=== PATIENT | male | born 1970 | race Caucasian/White ===

== ENCOUNTER 2018-01-15 14:05 | Emergency (ER) | payer BC, MEDICAID, OTHER ==
[~2018-01-15] VITALS: Ht 157.5 cm; Wt 79.4 kg
[~2018-01-15 14:05] MED LIST: ASPI-1169 PO; ATOR40TA PO; CARV6.25 PO; ENOX80DI SQ; Morphine Sulfate IV; NITR0.4T48 SL
--- NOTE | 2018-01-15 14:05 | NUR ---
C/O CHEST PAIN, DIZZINESS, HEADACHE, WEAKNESS X 1 WEEK, WORSE SINCE LAST NIGHT . PLACED ON MONITOR. AWAITING MD ORDER
--- NOTE | 2018-01-15 14:37 | NUR ---
RAC #20 IV ACCESS. BLOOD SAMPLE COLLECTED SENT TO LAB
[2018-01-15] MEDS ORDERED: IBUP-1490 PO (14:39)
[2018-01-15] MEDS ORDERED: BENA10TA9 PO (14:39)
[2018-01-15] MEDS ORDERED: CLOP75TA15 PO (14:39)
[2018-01-15] MEDS ORDERED: ASPI81TA44 PO (14:39)
[2018-01-15] MEDS ORDERED: PANT40TA4 PO (14:39)
[2018-01-15] MEDS ORDERED: ATOR10TA PO (14:39)
[2018-01-15 14:40] LABS: BASOPHILS % (AUTO) 0.5 % (0.0-2.0); EOSINOPHILS % (AUTO) 2.1 % (0.0-6.0); HEMATOCRIT 43 % (39-51); HEMOGLOBIN 14.2 g/dL (13.5-17.5); LYMPHOCYTES # (AUTO) 1.9 /CMM (0.8-4.8); LYMPHOCYTES % (AUTO) 22.4 % (20.0-44.0); MEAN CORPUSCULAR HGB CONC 34 g/dl (31.0-36.0); MEAN CORPUSCULAR VOLUME 89 fL (80-96); MONOCYTES # (AUTO) 0.6 /CMM (0.1-1.30); MONOCYTES % (AUTO) 6.8 % (2.0-12.0); NEUTROPHILS # (AUTO) 5.7 /CMM (1.8-8.9); NEUTROPHILS % (AUTO) 68.2 % (43.0-81.0); PLATELET COUNT (AUTO) 224 /CMM (150-450); RDW COEFFICIENT OF VARIATION 13.4 (11.5-15.0); RED BLOOD CELL COUNT(AUTO) 4.78 MIL/uL (4.5-6.0); WHITE BLOOD COUNT (AUTO) 8.4 K/uL (4.3-11.0)
[2018-01-15 14:50] LABS: CALCIUM, SERUM 8.8 mg/dL (8.5-10.1); CREATININE 0.9 mg/dL (0.6-1.3); POTASSIUM 3.7 mmol/L (3.5-5.1)
[2018-01-15 14:54] LABS: INR 0.88 (0.85-1.15)
[2018-01-15 14:56] LABS: ALBUMIN 3.8 g/dL (3.4-5.0); BILIRUBIN,TOTAL 0.2 mg/dL (0.2-1.0); TOTAL PROTEIN, SERUM 7.4 g/dL (6.4-8.2)
--- NOTE | 2018-01-15 16:10 | NUR ---
KISHA FROM [facility] [phone] CALLED ACCEPTING MD DR DE LA FUENTE [phone]
--- NOTE | 2018-01-15 17:51 | NUR ---
[phone] YASMIN FREDERICK CM TO GET ROOM AT [facility]
[2018-01-15 17:55] VITALS: BP 124/64
--- NOTE | 2018-01-15 19:16 | NUR ---
CALLED [facility], PATIENT WILL BE GOING TO ROOM 5558 NUMBER TO GIVE REPORT .
--- NOTE | 2018-01-15 19:19 | NUR ---
GAVE REPORT TO SHEILA FOR MADINA
--- NOTE | 2018-01-15 19:23 | NUR ---
[facility] MANJIT UNABLE TO PROVIDE NURSE AT THIS TIME CHANGE OF SHIFT. PROVIDED [facility] NUMBER
--- NOTE | 2018-01-15 19:24 | NUR ---
CALLED [facility] FOR TRANSPORT ETA OF [phone] WAS GIVEN. TRIP#[id number]
[2018-01-15] MEDS ORDERED: ACETAMINOPHEN ES 500 MG TABLET ONE (19:32)
--- NOTE | 2018-01-15 19:33 | NUR ---
TYLENOL 1000 MG X1 FOR HEADACHE VERBAL ORDER DR ANTUNEZ
[2018-01-15] MEDS ORDERED: ACETAMINOPHEN 325 MG TABLET PO ONE (20:00)
--- NOTE | 2018-01-15 20:51 | NUR ---
REPORT GIVEN TO EMT FOR TRANSPORT REPORT GIVEN TO [facility]
== END 2018-01-15 20:51 | disposition short-term general hospital (02) ==
LOC: ER 14:07
DX: R07.89 Other chest pain (principal); I25.10 Atherosclerotic heart disease of native coronary artery without angina pectoris; E78.5 Hyperlipidemia, unspecified; F17.200 Nicotine dependence, unspecified, uncomplicated; I10 Essential (primary) hypertension; Z79.82 Long term (current) use of aspirin; Z95.5 Presence of coronary angioplasty implant and graft
CPT/HCPCS: 36415; 71045-TC; 80053-TC; 84484-TC; 85025-TC; 85730-TC; A4606; Z7610

== ENCOUNTER 2018-09-25 19:17 | Emergency (ER) | END 2018-09-25 20:16 | disposition home or self-care (01) | DX: J20.9 Acute bronchitis, unspecified (principal); I10 Essential (primary) hypertension; E78.5 Hyperlipidemia, unspecified; E11.9 Type 2 diabetes mellitus without complications; F17.200 Nicotine dependence, unspecified, uncomplicated; Z95.5 Presence of coronary angioplasty implant and graft; Z79.82 Long term (current) use of aspirin ==

== ENCOUNTER 2019-11-24 20:24 | Emergency (ER) | payer BC ==
[~2019-11-24] VITALS: Ht 170.2 cm; Wt 72.1 kg
[~2019-11-24 20:24] MED LIST changes: -ASPI-1169 PO; +ASPI81TA44 PO; +ATOR10TA PO; -ATOR40TA PO; +BENA10TA74 PO; -CARV6.25 PO; +CLOP75TA15 PO; -ENOX80DI SQ; +IBUP-1490 PO; -Morphine Sulfate IV; -NITR0.4T48 SL; +PANT40TA4 PO
[2019-11-24] MEDS ORDERED: IV NS 0.9% 1,000 ML BAG IV ONE ×3 (21:00→22:30)
[2019-11-24 21:09] LABS: APPEARANCE,URINE Clear (CLEAR); BILIRUBIN,URINE Negative (NEGATIVE); BLOOD, URINE Trace-intact Ery/uL (NEGATIVE); COLOR,URINE Yellow (YELLOW); KETONES,URINE Negative (NEGATIVE); LEUKOCYTE ESTERASE ,URINE Negative (NEGATIVE); NITRITE, URINE Negative (NEGATIVE); PH,URINE 5.5 (5.0-8.0); PROTEIN,URINE Negative (NEGATIVE); UGLUCOSE >=1000 mg/dL (NEGATIVE); UROBILINOGEN,URINE 0.2 EU/dL (0.2)
--- NOTE | 2019-11-24 21:13 | NUR ---
MEIR. ELEVATED BS "HI" ON METER AT HOME. REGULAR INSULIN 1HR CABINET ABRASIVE SANDBLASTER 10UNITS, BG 423 TO ER BED 4, ORDERES RECEIVED AND CARRIED OUT
[2019-11-24 21:23] LABS: BACTERIA,URINE None seen /HPF (None Seen); RBC,URINE 0-2 /HPF (0-2); SQUAMOUS EPITHELIAL CELL,UR Few /HPF (None Seen); WBC,URINE 0-2 /HPF (0-3)
[2019-11-24 21:25] LABS: BASOPHILS # (AUTO) 0.1 /CMM (0.0-0.2); BASOPHILS % (AUTO) 0.8 % (0.0-2.0); EOSINOPHILS % (AUTO) 1.4 % (0.0-6.0); HEMATOCRIT 47 % (39-51); HEMOGLOBIN 15.9 g/dL (13.5-17.5); LYMPHOCYTES # (AUTO) 1.7 /CMM (0.8-4.8); LYMPHOCYTES % (AUTO) 25.3 % (20.0-44.0); MEAN CORPUSCULAR HGB CONC 34 g/dl (31.0-36.0); MEAN CORPUSCULAR VOLUME 92 fL (80-96); MONOCYTES # (AUTO) 0.5 /CMM (0.1-1.30); MONOCYTES % (AUTO) 6.9 % (2.0-12.0); NEUTROPHILS # (AUTO) 4.3 /CMM (1.8-8.9); NEUTROPHILS % (AUTO) 65.6 % (43.0-81.0); PLATELET COUNT (AUTO) 194 /CMM (150-450); RED BLOOD CELL COUNT(AUTO) 5.15 MIL/uL (4.5-6.0); WHITE BLOOD COUNT (AUTO) 6.5 K/uL (4.3-11.0)
[2019-11-24 21:41] LABS: ALANINE AMINOTRANSFERASE 9 U/L (12-78); ALBUMIN 3.8 g/dL (3.4-5.0); ALKALINE PHOSPHATASE 115 U/L (46-116); ASPARTATE AMINOTRANSFERASE 9 U/L (15-37); BILIRUBIN,DIRECT 0.1 mg/dL (0.0-0.2); BILIRUBIN,TOTAL 0.3 mg/dL (0.2-1.0); TOTAL PROTEIN, SERUM 7.2 g/dL (6.4-8.2)
--- NOTE | 2019-11-24 22:10 | NUR ---
BG 389
[2019-11-24] MEDS ORDERED: INSULIN REGULAR, HUMAN 100 UNIT/ML 10 ML VIAL SQ ONE (22:30)
[2019-11-24] MEDS ORDERED: INSULIN REGULAR, HUMAN 100 UNIT/ML 10 ML VIAL ONE (22:41)
[2019-11-24 23:02] LABS: POTASSIUM 4.5 mmol/L (3.5-5.1)
[2019-11-24 23:03] LABS: CALCIUM, SERUM 8.8 mg/dL (8.5-10.1); CREATININE 0.9 mg/dL (0.6-1.3)
--- NOTE | 2019-11-25 00:34 | NUR ---
Patient discharged to home in stable condition. Written and verbal after care instructions given. Patient verbalizes understanding of instruction.
[2019-11-25 00:35] VITALS: BP 108/75
== END 2019-11-25 00:35 | disposition home or self-care (01) ==
LOC: ER 20:29
DX: E11.65 Type 2 diabetes mellitus with hyperglycemia (principal); F17.210 Nicotine dependence, cigarettes, uncomplicated; E78.5 Hyperlipidemia, unspecified; I10 Essential (primary) hypertension; I25.2 Old myocardial infarction; Z95.5 Presence of coronary angioplasty implant and graft; Z79.82 Long term (current) use of aspirin; Z79.899 Other long term (current) drug therapy
CPT/HCPCS: 36415; 71045; 80048; 80076; 81001; 82962 ×4; 83880; 84484; 85025; 93005; 96360; 96361; 96372; 99285; 99406; J1815; J7030 ×2; 81000-TC

== ENCOUNTER 2021-01-27 22:25 | Inpatient (IN) | payer BC ==
[~2021-01-27] VITALS: Ht 167.6 cm; Wt 82.6 kg
[~2021-01-27 22:25] MED LIST changes: -PANT40TA4 PO; +PANT40TA49 PO
[2021-01-27] MEDS ORDERED: HALOPERIDOL LACTATE INJ 5 MG/ML VIAL ONE (22:40)
[2021-01-27] MEDS ORDERED: diphenhydrAMINE HCL 50 MG/ML VIAL ONE (22:54)
[2021-01-27] MEDS ORDERED: HALOPERIDOL LACTATE INJ 5 MG/ML VIAL IM ONE (23:00)
[2021-01-27] MEDS ORDERED: diphenhydrAMINE HCL 50 MG/ML VIAL IM ONE (23:00)
[2021-01-27 23:09] LABS: BASOPHILS % (AUTO) 0.5 % (0.0-2.0); EOSINOPHILS % (AUTO) 2.1 % (0.0-6.0); HEMATOCRIT 43 % (39-51); HEMOGLOBIN 14.4 g/dL (13.5-17.5); LYMPHOCYTES # (AUTO) 2.7 /CMM (0.8-4.8); LYMPHOCYTES % (AUTO) 34.5 % (20.0-44.0); MEAN CORPUSCULAR HGB CONC 34 g/dl (31.0-36.0); MEAN CORPUSCULAR VOLUME 93 fL (80-96); MONOCYTES # (AUTO) 0.5 /CMM (0.1-1.30); MONOCYTES % (AUTO) 6.2 % (2.0-12.0); NEUTROPHILS # (AUTO) 4.4 /CMM (1.8-8.9); NEUTROPHILS % (AUTO) 56.7 % (43.0-81.0); PLATELET COUNT (AUTO) 226 /CMM (150-450); RED BLOOD CELL COUNT(AUTO) 4.56 MIL/uL (4.5-6.0); WHITE BLOOD COUNT (AUTO) 7.8 K/uL (4.3-11.0)
--- NOTE | 2021-01-27 23:20 | NUR ---
STEPHANY FROM HOME TO ER BED 12. AWAKE, ALERT AND AGITATED. PT YELLING AND SCREAMING. BROUGHT INF FOR ALCOHOL INTOXICATION. PER EMS REPORT, PT WAS REPORTED BY THE FAMILY DRINKING TEQUILA ALL DAY. PT IS AGITATED UPON RECEIVING M/B YELLING AND SCREAMING. UNABLE TO GET INFORMATION FROM THE PATIENT. PT IS ON MONITOR NOTED TACHYCARDING IN THE 110. MD WAS AT THE BEDSIDE FOR EVAL. ORDERS RECEIVED, NOTED AND CARRIED OUT. IV LINE PRESENT STARTED BY THE EMS. PT ON MONITOR.
--- NOTE | 2021-01-27 23:27 | NUR ---
PT ENDORSED TO MARIA LUISA OROZCO FOR MADINA
[2021-01-27 23:30] LABS: CALCIUM, SERUM 8.4 mg/dL (8.5-10.1); CARBON DIOXIDE 22 mmol/L (21-32); CHLORIDE 104 mmol/L (98-107); CREATININE 0.9 mg/dL (0.6-1.3); GLUCOSE 218 mg/dL (74-106); POTASSIUM 3.7 mmol/L (3.5-5.1); SODIUM SERUM 141 mmol/L (136-145); UREA NITROGEN, BLOOD 14 mg/dL (7-18)
[2021-01-27 23:38] LABS: ALANINE AMINOTRANSFERASE 29 U/L (12-78); ALBUMIN 3.7 g/dL (3.4-5.0); ALCOHOL, BLOOD 258 mg/dL (0-0); ALKALINE PHOSPHATASE 78 U/L (46-116); ASPARTATE AMINOTRANSFERASE 15 U/L (15-37); BILIRUBIN,TOTAL 0.1 mg/dL (0.2-1.0); TOTAL PROTEIN, SERUM 7.2 g/dL (6.4-8.2)
[2021-01-27 23:39] LABS: ACETAMINOPHEN < 3 ug/ml (10-30)
--- NOTE | 2021-01-28 00:12 | NUR ---
CALL FROM LAB. RAPID COVID NEGATIVE.
[2021-01-28] MEDS ORDERED: IV NS 0.9% 1,000 ML BAG IV ONE (01:00)
--- NOTE | 2021-01-28 01:00 | NUR ---
left hand 20g initated
--- NOTE | 2021-01-28 01:00 | NUR ---
transfer info: CM is Kathy Bettencourt. Pt going to [facility]. Accepting Dr Weinstein. Auth for ambulance is [id number]
--- NOTE | 2021-01-28 02:10 | NUR ---
TRANSFER INFO IS [facility] ROOM 509 MD ANTONINA LUJAN, NUMBER FOR REPORT IS [phone] PER ROYAL WHELAN FROM [facility].
[2021-01-28] MEDS ORDERED: ASPIRIN 81 MG TAB.CHEW PO ONE (02:30)
[2021-01-28] MEDS ORDERED: LORAZEPAM 1 MG TABLET PO ONE (02:30)
--- NOTE | 2021-01-28 02:34 | NUR ---
[employer] called for transport. Trip: [id number]
[2021-01-28] MEDS ORDERED: ASPIRIN EC 81 MG TABLET.DR PO ONE (03:15)
[2021-01-28] MEDS ORDERED: LORAZEPAM 1 MG TABLET ONE (03:15)
[2021-01-28] MEDS ORDERED: ASPIRIN 81 MG TAB.CHEW ONE (03:16)
--- NOTE | 2021-01-28 03:28 | NUR ---
REPORT GIVEN TO MARIA LUISA ARCINIEGA FOR [facility]
--- NOTE | 2021-01-28 04:05 | NUR ---
CALL FROM [facility] TRANSP[facility]. [facility] ETA [phone].
[2021-01-28] MEDS ORDERED: IV NS 0.9% 1,000 ML IV PRN (06:00)
[2021-01-28] MEDS ORDERED: HYDROCODONE/APAP 5/325MG TABLET PO PRN (06:00)
[2021-01-28] MEDS ORDERED: LORAZEPAM INJ 2 MG/ML VIAL IV PRN (06:00)
[2021-01-28] MEDS ORDERED: Thiamine 100 MG in IV D5W 50 ML IV SCH (06:00)
[2021-01-28] MEDS ORDERED: MAG HYDROX/AL HYDROX/SIMETH 30 ML UDC PO PRN (06:00)
[2021-01-28] MEDS ORDERED: ACETAMINOPHEN 325 MG TABLET PO PRN (06:00)
[2021-01-28] MEDS ORDERED: Z GUARD REMEDY 2 OZ OINT TP PRN (06:00)
[2021-01-28] MEDS ORDERED: MAGNESIUM HYDROXIDE 30 ML UDC PO PRN (06:00)
[2021-01-28] MEDS ORDERED: ZOLPIDEM TARTRATE 5 MG TABLET PO PRN (06:00)
[2021-01-28] MEDS ORDERED: ONDANSETRON HCL/PF 4 MG/2 ML VIAL IVP PRN (06:00)
--- NOTE | 2021-01-28 06:00 | NUR ---
PT PLACED ON 2 L O2 VIA N/C.
[2021-01-28] MEDS ORDERED: Thiamine 100 MG/ML VIAL ONE (06:28)
--- NOTE | 2021-01-28 07:53 | NUR ---
REPORT GIVEN TO ÁNGELA GLASS.
--- NOTE | 2021-01-28 07:59 | NUR ---
PATIENT TRANSFERRED TO FLOOR IN STABLE CONDITION VIA ACLS PROTOCOL.
--- NOTE | 2021-01-28 08:10 | NUR ---
[facility] MANAGER NOTE RECEIVED PATIENT FROM ER. PATIENT BROUGHT IN FOR ALCOHOL INTOXICATION. PATIENT IS LETHARGIC, ABLE TO WALK WITH ASSISTANCE. A/O X3. SPEAKS SLOV[place]/ARGENTINE AND UNDERSTANDS VERY LITTLE IRANIAN. PATIENT IS CALM AND COOPERATIVE AT THIS TIME. IV ACCESS TO LEFT HAND #20 - INTACT AND PATENT. SKIN INTACT. NO CHEST PAIN NOTED AT THIS TIME. NO PAIN OR DISTRESS NOTED AT THIS TIME. PATIENT ON 3LPM VIA NASAL CANNULA - NO SOB NOTED. BED IS IN LOWEST, LOCKED POSITION. SEMI-FOWLERS. CURRENTLY HOOKED UP TO TELE MONITOR - READING SINUS TACH @ 102. CALL LIGHT WITHIN REACH. WILL CONTINUE TO MONITOR.
--- NOTE | 2021-01-28 08:18 | NUR ---
CALLED [facility] TO CANCEL TRANSPORT [phone] BART
[2021-01-28 08:26] VITALS: BP 136/84
[2021-01-28] MEDS ORDERED: IBUPROFEN 600 MG TABLET PO PRN (08:30)
[2021-01-28 08:41] LABS: BASOPHILS # (AUTO) 0.1 /CMM (0.0-0.2); BASOPHILS % (AUTO) 0.7 % (0.0-2.0); EOSINOPHILS % (AUTO) 1.7 % (0.0-6.0); HEMATOCRIT 40 % (39-51); HEMOGLOBIN 13.3 g/dL (13.5-17.5); LYMPHOCYTES # (AUTO) 2.1 /CMM (0.8-4.8); LYMPHOCYTES % (AUTO) 29.8 % (20.0-44.0); MEAN CORPUSCULAR HGB CONC 33 g/dl (31.0-36.0); MEAN CORPUSCULAR VOLUME 94 fL (80-96); MONOCYTES # (AUTO) 0.5 /CMM (0.1-1.30); MONOCYTES % (AUTO) 6.4 % (2.0-12.0); NEUTROPHILS # (AUTO) 4.4 /CMM (1.8-8.9); NEUTROPHILS % (AUTO) 61.4 % (43.0-81.0); PLATELET COUNT (AUTO) 200 /CMM (150-450); RED BLOOD CELL COUNT(AUTO) 4.29 MIL/uL (4.5-6.0); WHITE BLOOD COUNT (AUTO) 7.1 K/uL (4.3-11.0)
[2021-01-28 08:45] LABS: CALCIUM, SERUM 7.9 mg/dL (8.5-10.1); CREATININE 0.8 mg/dL (0.6-1.3); POTASSIUM 3.7 mmol/L (3.5-5.1)
[2021-01-28] MEDS ORDERED: INSU100I19 SQ (08:47)
[2021-01-28] MEDS ORDERED: METO50TA16 PO (08:47)
[2021-01-28] MEDS ORDERED: LISI-768 PO (08:47)
[2021-01-28] MEDS ORDERED: PANTOPRAZOLE 40 MG VIAL IV SCH (09:00)
[2021-01-28] MEDS ORDERED: INSULIN REGULAR, HUMAN 100 UNIT/ML 3 ML VIAL SQ PRN (09:00)
[2021-01-28] MEDS ORDERED: ASPIRIN EC 81 MG TABLET.DR PO SCH (09:00)
[2021-01-28] MEDS ORDERED: BENAZEPRIL HCL 10 MG TABLET PO SCH (09:00)
[2021-01-28] MEDS ORDERED: CLOPIDOGREL BISULFATE 75 MG TABLET PO SCH (09:00)
[2021-01-28] MEDS ORDERED: DEXTROSE 50%-WATER 50 ML DISP.SYRIN IV PRN (09:00)
[2021-01-28] MEDS ORDERED: INSULIN DETEMIR 100 UNIT/ML CARTRIDGE SQ SCH (09:30)
[2021-01-28] MEDS ORDERED: INSULIN GLARGINE, 100 UNIT/ML CARTRIDGE SQ SCH (09:36)
[2021-01-28] MEDS: BLOOD SUGAR DIAGNOSTIC 1 EACH STRIP IN SCH ×3 (12:16→22:19)
[2021-01-28 16:00] VITALS: BP 157/94
--- NOTE | 2021-01-28 16:12 | NUR ---
Specialty Person note: director of maternity services received request for consult for alcohol use and will follow up with the patient at a later time.
[2021-01-28] MEDS ORDERED: METOPROLOL TARTRATE 50 MG TABLET PO SCH (17:00)
[2021-01-28] MEDS ORDERED: ATORVASTATIN 10 MG TABLET PO SCH (18:00)
--- NOTE | 2021-01-28 18:32 | NUR ---
MS RN CLOSING NOTE PATIENT CURRENTLY LYING IN BED, RESTING. A/O X3. SPEAKS DJIBOUTIAN/AZERBAIJANI. UNDERSTANDS MINIMAL YAKUT. ON 3LPM OXYGEN VIA NASAL CANNULA - TOLERATING WELL. NO DISTRESS NOTED AT THIS TIME. IV ACCESS TO LEFT HAND #20 - RUNNING NS @ 100ML/HR. PATIENT PASSED NURSING SWALLOW EVAL AND IS ABLE TO EAT BUT DOES NOT WANT TO. SKIN INTACT. ALL SCHEDULED MEDICATIONS GIVEN. PATIENT IS DISCHARGING TO [facility]. REPORT GIVEN, [employer] SCHEDULED FOR 2129. , PAIGE MADE AWARE OF TRANSFER/DISCHARGE. SAFETY MEASURES IN PLACE. CALL LIGHT WITHIN REACH. WILL ENDORSE TO SUPERVISOR ENROBING NURSE FOR MADINA.
[2021-01-28 20:00] VITALS: BP 147/96
--- NOTE | 2021-01-28 21:46 | NUR ---
PATIENT'S PAIGE CAME, AT THE BEDSIDE.
--- NOTE | 2021-01-28 23:07 | NUR ---
PATIENT IS BEING PICKED UP BY THE AMBULANCE TO BE TRANSFERRED TO [facility]. PATIENT IS A/O X4. NO S/S OF DISTRESS NOTED. NO COMPLAIN OF PAIN. ACCOMPANIED ALSO WITH THE . D/C PACKET GIVEN TO THE AMBULANCE.
[2021-01-29] MEDS ORDERED: PANTOPRAZOLE 40 MG TABLET.DR PO SCH (07:30)
[2021-01-29] MEDS ORDERED: LISINOPRIL (5MG) 5 MG TABLET PO SCH (09:00)
--- NOTE | 2021-01-29 13:51 | NUR ---
SS Note: SW attempted to meet with pt. for ETOH intervention and provide addiction resources. However, pt. has already departed.
== END 2021-01-28 23:10 | disposition short-term general hospital (02) | DRG 775 ==
LOC: ER 22:28 → TELE 01-28 07:49 → MED 01-28 10:52
PROVIDERS: ADMIT Nurse Practitioner Acute Care; ATTEND Nurse Practitioner Acute Care
DX: F10.129 Alcohol abuse with intoxication, unspecified (principal); G92 Toxic encephalopathy; J18.9 Pneumonia, unspecified organism; I24.9 Acute ischemic heart disease, unspecified; E11.65 Type 2 diabetes mellitus with hyperglycemia; E11.9 Type 2 diabetes mellitus without complications; Y90.8 Blood alcohol level of 240 mg/100 ml or more; I10 Essential (primary) hypertension; E78.5 Hyperlipidemia, unspecified; I25.10 Atherosclerotic heart disease of native coronary artery without angina pectoris; K21.9 Gastro-esophageal reflux disease without esophagitis; Z79.82 Long term (current) use of aspirin; Z95.5 Presence of coronary angioplasty implant and graft; Z71.6 Tobacco abuse counseling; F17.210 Nicotine dependence, cigarettes, uncomplicated; J44.0 Chronic obstructive pulmonary disease with (acute) lower respiratory infection; Z20.822 Contact with and (suspected) exposure to COVID-19
CPT/HCPCS: 36415; 71045-TC; 80048-TC; 80076-TC; 82140-TC; 82962-TC; 83690-TC; 83880; 84484-TC; 85025-TC; 87081-TC; C9803; G0378; G0480; J1200; J1630; J1815; J3411; J7030; J7060